=== PATIENT | female | born 1970 | race Caucasian/White ===

== ENCOUNTER 2023-09-22 05:21 | Observation (INO) | payer OTHER ==
[~2023-09-22] VITALS: Ht 170.2 cm; Wt 93.3 kg
[2023-09-22] MEDS ORDERED: CETI5SOL3 PO (06:11)
[2023-09-22] MEDS ORDERED: LEVO100T5 PO (06:11)
[2023-09-22] MEDS ORDERED: CABE0.5T PO (06:11)
[2023-09-22] MEDS ORDERED: TOPA50TA8 PO (06:11)
[2023-09-22] MEDS ORDERED: VALA500T5 PO (06:11)
[2023-09-22] MEDS ORDERED: OMEP10CASR PO (06:11)
[2023-09-22] MEDS ORDERED: MONT5CHW10 PO (06:11)
[2023-09-22] MEDS ORDERED: MELO15TA28 PO (06:11)
[2023-09-22] MEDS ORDERED: CYCL-707 PO (06:11)
[2023-09-22] MEDS ORDERED: CARA1TAB6 PO (06:11)
[2023-09-22] MEDS ORDERED: LOVA10TA PO (06:11)
[2023-09-22] MEDS ORDERED: OXYB5TAB11 PO (06:11)
[2023-09-22 07:28] LABS: BASO % 0.4 % (0.0-1.0); EOS # 0.2 10^3/uL (0.0-0.5); EOS % 3.1 % (0.0-3.0); HEMOGLOBIN 13.5 g/dl (12.0-15.5); LYMPH # 2.6 10^3/uL (1.5-5.0); LYMPH % 46.6 % (24.0-44.0); MEAN CORPUSCULAR HEMOGLOBIN 30.8 pg (27.0-33.0); MEAN CORPUSCULAR HGB CONC 33.8 g/dl (32.0-36.5); MEAN CORPUSCULAR VOLUME 91.1 fl (80.0-96.0); MONO # 0.4 10^3/uL (0.0-0.8); MONO % 6.5 % (2.0-8.0); NEUTROPHILS # 2.4 10^3/uL (1.5-8.5); NEUTROPHILS % 43.2 % (36.0-66.0); PLATELET COUNT, AUTOMATED 205 10^3/uL (150-450); RED BLOOD COUNT 4.39 10^6/uL (4.00-5.40); WHITE BLOOD COUNT 5.5 10^3/uL (4.0-10.0)
[2023-09-22 07:32] VITALS: BP 176/73; TEMP 96.8
[2023-09-22 07:56] LABS: INR 1.04; PARTIAL THROMBOPLASTIN TIME 33.6 SECONDS (24.8-34.2); PROTHROMBIN TIME 13.3 SECONDS (12.5-14.5)
[2023-09-22 08:27] LABS: CK-MB VALUE MASS < 1.0 NG/ML (<3.6)
[2023-09-22 08:30] LABS: BLOOD UREA NITROGEN 15 MG/DL (9-23); CARBON DIOXIDE LEVEL 24 MMOL/L (20-31); CHLORIDE LEVEL 114 MMOL/L (98-107); CPK CREATINE PHOSPHOKINASE 43 U/L (34-145); CREATININE FOR GFR 0.65 MG/DL (0.55-1.30); GLOMERULAR FILTRATION RATE > 60.0 (>51); GLUCOSE, FASTING 92 MG/DL (60-100); MB/CK RELATIVE INDEX 2.32 (< OR =4); POTASSIUM SERUM 3.5 MMOL/L (3.5-5.1); SODIUM LEVEL 145 MMOL/L (136-145)
[2023-09-22] MEDS ORDERED: CETIRIZINE (ZyrTEC) 10 MG TAB PO SCH (09:00)
[2023-09-22 11:25] LABS: FREE THYROXINE INDEX 2.8 % (1.3-4.8); T UPTAKE 31.6 % (22.5-37.0); THYROID STIMULATING HORMONE 1.384 uIU/ML (0.55-4.78)
[2023-09-22 11:35] LABS: PROCALCITONIN <0.04 ng/ml
[2023-09-22] MEDS ORDERED: ISOVUE-370 76% 100ML VIAL As Ordered ONE (11:35)
[2023-09-22 12:25] LABS: ALBUMIN 3.7 G/DL (3.2-5.2); ALKALINE PHOSPHATASE 78 U/L (46-116); ALT/SGPT 27 U/L (7.0-40); AST/SGOT 37 U/L (<34); BILIRUBIN,DIRECT 0.2 MG/DL (<0.4); BILIRUBIN,TOTAL 0.6 MG/DL (0.3-1.2); TOTAL PROTEIN 6.4 G/DL (5.7-8.2)
[2023-09-22 12:46] LABS: HEMOGLOBIN A1c 4.9 % (4.0-6.0)
[2023-09-22] MEDS ORDERED: PROHANCE 279.3MG/ML 5ML VIAL As Ordered ONE (13:32)
[2023-09-22] MEDS ORDERED: PROHANCE 279.3MG/ML 15ML VIAL As Ordered ONE (13:32)
[2023-09-22] MEDS ORDERED: OMEP1CAP73 PO (15:40)
[2023-09-22] MEDS ORDERED: VENTAER INH (15:40)
[2023-09-22] MEDS ORDERED: LEVO112T2 PO (15:40)
[2023-09-22] MEDS ORDERED: MELO7.5T35 PO (15:40)
[2023-09-22] MEDS ORDERED: MONT10TA97 PO (15:40)
[2023-09-22] MEDS ORDERED: FLON1SPR (15:40)
[2023-09-22] MEDS ORDERED: RIME75TA PO (15:40)
[2023-09-22] MEDS ORDERED: ALBU2.5V10 INH (15:40)
[2023-09-22] MEDS ORDERED: BIOT10009 PO (15:40)
[2023-09-22] MEDS ORDERED: CETI10TA PO (15:40)
[2023-09-22] MEDS ORDERED: THERTAB52 PO (15:40)
[2023-09-22] MEDS ORDERED: HYDR-643 PO (15:40)
[2023-09-22] MEDS ORDERED: OXYB10TA23 PO (15:40)
[2023-09-22] MEDS ORDERED: SUPE5000 PO (15:40)
[2023-09-22] MEDS ORDERED: ESTR1CRE VG (15:40)
[2023-09-22] MEDS ORDERED: B-12100010 PO (15:40)
[2023-09-22] MEDS ORDERED: HOME MED LIST COMPLETE! XX SCH (15:45)
[2023-09-22 16:06] VITALS: BP 154/89; TEMP 98.2; O2SAT 98
[2023-09-22] MEDS: SUCRALFATE 1 GM TAB PO SCH ×2 (16:49→21:45)
[2023-09-22] MEDS: oxyBUTYnin *DITROPAN XL* 5 MG TABCR PO SCH (16:49)
[2023-09-22] MEDS: OMEPRAZOLE 20MG CAP PO SCH (16:49)
[2023-09-22] MEDS: LEVOTHYROXINE 112MCG TABLET (0.112MG) PO SCH (16:49)
[2023-09-22 20:00] VITALS: BP 116/57; TEMP 97.3; O2SAT 100
[2023-09-22] MEDS ORDERED: MONTELUKAST 10 MG TAB PO SCH (21:00)
[2023-09-22] MEDS: HEPARIN SOD (PORCINE) 5000UNITS/ML 1ML VIAL/SYRINGE SQ SCH (21:45)
[2023-09-22] MEDS: CETIRIZINE (ZyrTEC) 10 MG TAB PO SCH (21:45)
[2023-09-23 04:00] VITALS: BP 120/80; TEMP 97.7; O2SAT 98
[2023-09-23] MEDS: LEVOTHYROXINE 112MCG TABLET (0.112MG) PO SCH (05:43)
[2023-09-23 07:23] LABS: FOLATE > 24.00 NG/ML (>5.4); TOTAL 25(OH) VITAMIN D 53.1 NG/ML (20.0-100.0)
[2023-09-23 07:25] LABS: VITAMIN B12 LEVEL > 2000 PG/ML (211-911)
[2023-09-23] MEDS: SUCRALFATE 1 GM TAB PO SCH ×2 (08:09→12:15)
[2023-09-23] MEDS: CETIRIZINE (ZyrTEC) 10 MG TAB PO SCH (08:09)
[2023-09-23] MEDS: oxyBUTYnin *DITROPAN XL* 5 MG TABCR PO SCH (08:09)
[2023-09-23] MEDS: OMEPRAZOLE 20MG CAP PO SCH (08:09)
[2023-09-23] MEDS: HEPARIN SOD (PORCINE) 5000UNITS/ML 1ML VIAL/SYRINGE SQ SCH (08:10)
[2023-09-23 15:00] VITALS: BP 145/72; TEMP 97.9; O2SAT 98
[2023-09-24 12:09] LABS: ANTINUCLEAR ANTIBODIES DIRECT Negative (Negative)
== END 2023-09-23 15:43 | disposition home or self-care (01) ==
LOC: EDBD 05:21 → M ED 05:21 → M ED INP 05:22 → ENRESERV 14:19 → M MSPAV 15:50
PROVIDERS: ADMIT General Practice; ATTEND General Practice
DX: R41.82 Altered mental status, unspecified (principal); H53.19 Other subjective visual disturbances; G45.4 Transient global amnesia; R20.2 Paresthesia of skin; Z20.822 Contact with and (suspected) exposure to COVID-19; F07.81 Postconcussional syndrome; Z91.81 History of falling; G43.109 Migraine with aura, not intractable, without status migrainosus; E03.9 Hypothyroidism, unspecified; A60.09 Herpesviral infection of other urogenital tract; J45.909 Unspecified asthma, uncomplicated; M79.7 Fibromyalgia; Z98.84 Bariatric surgery status; E66.9 Obesity, unspecified; Z68.32 Body mass index [BMI] 32.0-32.9, adult; Z88.8 Allergy status to other drugs, medicaments and biological substances; Z88.2 Allergy status to sulfonamides; Z88.5 Allergy status to narcotic agent; Z79.899 Other long term (current) drug therapy; Z79.890 Hormone replacement therapy
CPT/HCPCS: 36415; 70450; 70496; 70498; 70553; 71045; 80048; 80076; 82140; 82306; 82550; 82553; 82607; 82746; 83036; 84145; 84146; 84436; 84443; 84479; 85025; 85610; 85730; 86038; 87635; 93005; 93041; 94760; 95819; 96372; 97161; 97165; 99285; A9576; Q9967

== ENCOUNTER → 2023-12-25 | Outpatient (REF) | payer OTHER ==
[~2023-12-25] MED LIST: ALBU2.5V10 INH; B-12100010 PO; BIOT10009 PO; CABE0.5T PO; CARA1TAB6 PO; CETI10TA PO; CETI5SOL3 PO; CYCL-707 PO; ESTR1CRE VG; FLON1SPR; HYDR-643 PO; LEVO100T5 PO; LEVO112T2 PO; LOVA10TA PO; MELO15TA28 PO; MELO7.5T35 PO; MONT10TA97 PO; MONT5CHW10 PO; OMEP10CASR PO; OMEP1CAP73 PO; OXYB10TA23 PO; OXYB5TAB14 PO; RIME75TA PO; SUPE5000 PO; THERTAB52 PO; TOPA50TA8 PO; VALA500T5 PO; VENTAER INH
[2023-12-25 16:08] LABS: APPEARANCE, URINE HAZY (CLEAR); BACTERIA, URINE AUTO NEGATIVE (NEGATIVE); BILIRUBIN, URINE AUTO NEGATIVE (NEGATIVE); BLOOD, URINE BLOOD NEGATIVE (NEGATIVE); CALCIUM OXALATE CRYSTALS SMALL; COLOR, URINE AMBER (YELLOW); GLUCOSE, URINE (UA) AUTO NEGATIVE (NEGATIVE); KETONE, URINE AUTO NEGATIVE (NEGATIVE); LEUKOCYTE ESTERASE, URINE AUTO NEGATIVE (NEGATIVE); MUCUS, URINE SMALL (NEGATIVE); NITRITE, URINE AUTO NEGATIVE (NEGATIVE); PROTEIN, URINE AUTO 1+ mg/dL (NEGATIVE); RBC, URINE AUTO 2 /HPF (0-3); SPECIFIC GRAVITY URINE AUTO 1.027 (1.002-1.035); SQUAMOUS EPITHELIAL CELL UR AU 0 /HPF (0-6); WBC, URINE AUTO 2 /HPF (0-3)
== END ==
LOC: M SMT 15:19
PROVIDERS: ATTEND Urology
DX: N39.0 Urinary tract infection, site not specified (principal)